=== PATIENT | male | born 1940 | race Caucasian/White ===

== ENCOUNTER 2018-10-26 10:45 | Observation (INO) ==
[2018-10-26] MEDS ORDERED: ASPIRIN 81 MG TAB.CHEW PO ONE (10:58)
--- NOTE | 2018-10-26 11:03 | ERNOTE ---
Chest Pain/Cardiac HPI Chief Complaint: Chest Pain Time Seen by Provider: 10/26/18 10:52 Source: patient Exam Limitations: no limitations Immunizations: IMMUNIZATION HX Immunizations Up to Date No History of Influenza Vaccine No Hx Pneumococcal Vaccination No Allergies/Adverse Reactions: Allergies No Known Allergies Allergy (Verified 10/26/18 10:58) Home Medications: HOME MEDICATIONS carbidopa ER 25 mg-levodopa 100 mg tablet,extended release 1 tab PO Q12H 01/19/18 [Last Taken Unknown] lisinopril 10 mg tablet 10 mg PO DAILY #90 tab 03/06/18 [Last Taken Unknown] lorazepam 0.5 mg tablet 0.25 mg PO BID PRN #30 tab 09/19/18 [Last Taken Unknown] Narrative: Patient has had intermittent chest pressure and shortness of breath over last three days related to activity. He lost his a month ago and after being more sedentary with her has been more physically active again, states that he gets symptoms with activity only, this morning with walking across the yard, resolved at this time Date (Duration): 10/24/18 Timing: intermittent Severity/Quality: moderate, pressure Location: central Chest Pain Radiation: no radiation Activities at Onset: activity Modifying Factors - Worsens: Present: exercise Nitro Today/Relief: no nitro taken today Aspirin Treatment Today: no aspirin today Associated Symptoms: Present: dizziness, shortness of breath. Absent: diaphoresis, nausea, vomiting, back pain Prior Chest Pain/Cardiac Workup: Denies: prior chest pain, heart attack Prior Treatment: Denies: recently seen, currently on antibiotics Review of Systems - Review of Systems Constitutional: Absent: recent illness ENT: Absent: nose congestion, sore throat Respiratory: Present: See HPI, shortness of breath. Absent: cough Cardiology: Present: See HPI, chest pain Gastrointestinal/Abdominal: Absent: nausea, abdominal pain Genitourinary: Present: no symptoms reported Musculoskeletal: Absent: back pain Neurological: Absent: headache Medical History (Updated 10/26/18 @ 12:58 by Lakia Ramos MD) Parkinsons disease (Chronic) Onset Date: Unknown Cellulitis (Chronic) Onset Date: Unknown HTN (hypertension) Kidney stone Onset Date: Unknown Surgical History: Surgical History (Updated 01/19/18 @ 10:41 by Camille Wallace RN) H/O removal of cyst Onset Date: Unknown History of foot surgery Onset Date: ~12/2009 right, due to infection, had dropped a railroad tie on it Family History: Family History (Updated 01/19/18 @ 10:41 by Camille Wallace RN) Father , age 60 Myocardial infarction Mother , age 91 old age No problems noted. Social History: Preferred Language Amharic Smoking Status Former smoker Alcohol Use none Drug Use none (Last Updated 01/19/18 @ 10:43 by Camille Wallace RN) No Social History Section defined Physical Exam - Physical Exam General Appearance: Present: wd/wn, alert, no apparent distress Head Exam: Present: normal inspection Respiratory: Present: no respiratory distress, normal breath sounds, no accessory muscle use, chest nontender, lungs clear Cardiovascular/Chest: Present: regular rate, rhythm, no murmur Gastrointestinal/Abdominal: Present: normal bowel sounds, nontender, nondistended, soft Extremity Exam: Present: no edema Neurological Exam: Present: alert, oriented, normal mood/affect Skin Exam: Present: normal color, warm/dry Progress - Results and Orders Patient's Lab Results:: I have reviewed the patient's lab results. - Vital Signs Patient's Vital Signs:: I have reviewed the patient's vital signs. Vital Signs: Vital Signs 10/26/18 10:54 10/26/18 10:59 Temperature 37.2 C Pulse Rate 77 64 Blood Pressure 169/103 H O2 Sat by Pulse Oximetry 93 - EKG EKG #1 EKG: NSR, other - no acute changes EKG read: Interp. by me - X-Ray X-Ray #1 X-Ray: chest - chronic, no acute changes Interpretation: Reviewed by me - Progress/Reassessment Chief Complaint: Chest Pain Progress Note-Subjective: 10/26/18 12:45 discussed test results with patient and family, patient has had no chest pain or shortness of breath since getting here 10/26/18 12:[address] Martinez 10/26/18 13:12 discussed with hannah Espinoza to admit for observation for chest pain Departure Clinical Impression: Chest pain Qualifiers: Chest pain type: unspecified Qualified Code(s): R07.9 - Chest pain, unspecified - Departure Disposition: Still a patient Condition: Stable Referrals: Jose Martinez MD [Primary Care Provider] -
[2018-10-26 11:12] LABS: Hematocrit 40.2 % (42.0-52.0); Hemoglobin 13.5 gm/dL (13.5-18.0); Mean Corpuscular Hemoglobin 30.9 pg (27-31); Mean Corpuscular Hgb Conc 33.6 g/dl (32-36); Mean Platelet Volume 11.9 fl (8-11.3); Neutrophil # 4.7 K/mm3 (1.3-6.0); Neutrophil % 66.6 % (42-75.0); Platelet Count 110 K/mm3 (150-450); Red Blood Count 4.37 M/mm3 (4.7-6.0); White Blood Count 7.1 K/mm3 (4.0-10.5)
[2018-10-26 11:22] LABS: Prothrombin Time (Patient) 10.1 Seconds (9.1-10.7)
[2018-10-26 11:25] LABS: INR 1.02 INR (0.92-1.08); Partial Thrombolplastin Time 24.9 Seconds (24-32)
[2018-10-26 11:30] LABS: Albumin * 3.5 gm/dl (3.4-5.0); Anion Gap 12.8 mmol/L (6.8-13.8); BUN/Creatinine Ratio 17.7 (9.0-21.6); Bilirubin, Total 0.6 mg/dL (0.0-1.1); Ca. Corrected For Albumin 8.9 mg/dL (8.4-10.2); Calcium * 8.8 mg/dL (7.9-10.9); Carbon Dioxide 26.4 mmol/L (24-32.6); Potassium 4.2 mmol/L (3.4-4.6); Total Protein 6.9 gm/dL (6.2-8.2); Troponin I 0.106 ng/mL (0.00-0.10)
[2018-10-26] MEDS ORDERED: NITROGLYCERIN 0.4 MG/TAB BTL SL PRN (13:25)
[2018-10-26] MEDS ORDERED: ROSUVASTATIN CALCIUM 20 MG TABLET PO STA (13:25)
--- NOTE | 2018-10-26 16:30 | HP ---
Chief Complaint - Chief Complaint Date of Service: 10/26/18 Time of Service: 16:13 Chief Complaint: chest pain History of Present Illness: Jason Butler is a 78-year-old white male with past medical history of Parkinson's disease, hypertension who was admitted on 10/26/2018 because of chest pain. Since 2 to 3 days prior to admission the patient has had 2 episodes of chest anterior tightness, 5/10, nonradiating, associated with shortness of breath and lightheadedness, lasting for about 5 to 10 minutes, relieved with rest. As per daughter the patient has been inactive ever since he was watching and taking care of his who recently . In the last couple of days, he started helping his neighbor tear down an old barn. The daughter then brought him to the emergency room where he was found to have a normal sinus rhythm on EK G with a troponin of 0.103. By the time he got to the emergency room his chest pain had resolved and he has been chest pain-free since admission. He denies any nausea, diaphoresis, history of heartburn. He was admitted for observation following our chest pain protocol. Medical History (Updated 10/26/18 @ 16:30 by Jose Martinez MD) Parkinsons disease (Chronic) Onset Date: Unknown Cellulitis (Chronic) Onset Date: Unknown HTN (hypertension) Kidney stone Onset Date: Unknown Surgical History: Surgical History (Updated 10/26/18 @ 16:30 by Jose Martinez MD) H/O removal of cyst Onset Date: Unknown History of foot surgery Onset Date: ~12/2009 right, due to infection, had dropped a railroad tie on it Family History: Family History (Updated 01/19/18 @ 10:41 by Camille Wallace RN) Father , age 60 Myocardial infarction Mother , age 91 old age No problems noted. Social History: Patient Lives/Resources Home Utilized Occupation none Preferred Language Pakistani Do you have any latter day or No cultural preference? Smoking Status Former smoker Have you smoked in the past 12 No months Do you dip or chew tobacco No Alcohol Use none Drug Use none (Last Updated 01/19/18 @ 10:43 by Camille Wallace RN) No Social History Section defined Review Of Systems (GEN) - Review of Systems Generalized/Overall Review: Absent: Weakness, Chills EENTM: Absent: Blurred Vision Respiratory: Present: Shortness of Breath. Absent: Cough, Orthopnea, Wheezing Cardiac: Present: Chest Pain. Absent: Edema, Palpitations Abdominal: Absent: Nausea, Vomiting, Hematemesis Genitourinary: Absent: Urgency, Frequency Musculoskeletal: Absent: Joint Pain, Back Pain Neurological: Absent: Headache Skin: Absent: Lesions, Rash Endocrine: Absent: Intolerance to Cold, Intolerance to Heat Misc: All systems neg except as marked Immunizations: IMMUNIZATION HX Immunizations Up to Date No History of Influenza Vaccine No Hx Pneumococcal Vaccination No Allergies/Adverse Reactions: Allergies Allergy/AdvReac Type Severity Reaction Status Date / Time No Known Allergies Allergy Verified 10/26/18 13:54 Home Medications: HOME MEDICATIONS carbidopa ER 25 mg-levodopa 100 mg tablet,extended release 1 tab PO TID 01/19/18 [Last Taken 10/26/18 16:56] lisinopril 10 mg tablet 10 mg PO DAILY #90 tab 03/06/18 [Last Taken Unknown] lorazepam 0.5 mg tablet 0.25 mg PO BID PRN #30 tab 09/19/18 [Last Taken Unknown] Exam - Exam Vital Signs: Vital Signs - Last Taken Temp 36.3 C 10/26/18 13:53 Pulse 68 10/26/18 13:55 Resp 16 10/26/18 13:53 BP 167/82 H 10/26/18 13:53 Pulse Ox 94 10/26/18 13:53 Constitutional: Present: Alert, Oriented x3, Cooperative ENT Exam: Present: hearing grossly normal Eye Exam: bilateral eye: normal inspection, PERRL, EOMI Neck: Present: supple. Absent: lymphadenopathy (R), lymphadenopathy (L) Respiratory: Present: decreased breath sounds, No rales, No wheezing Cardiovascular/Chest: Present: regular rate, rhythm, no JVD, no murmur. Absent: costrochronditis, chest tender Abdomen: Present: Normal bowel sounds, soft, nontender, nondistended Extremity: Present: no pedal edema, no calf tenderness Diagnostic Studies: Abnormal Lab Results 10/26/18 10/26/18 Range/Units 11:05 11:05 RBC 4.37 L (4.7-6.0) M/mm3 Hct 40.2 L (42.0-52.0) % Plt Count 110 L (150-450) K/mm3 MPV 11.9 H (8-11.3) fl Lymphocytes % 19.5 L (20-51) % Monocytes % 11.6 H (0.0-9) % Lymphocytes # 1.38 L (1.5-3.5) k/mm3 Random Glucose 130 H (70-110) mg/dL ALT 14 L (19-67) U/L Troponin I 0.106 H (0.00-0.10) ng/mL Laboratory Results WBC 7.1 K/mm3 (4.0-10.5) 10/26/18 11:05 RBC 4.37 M/mm3 (4.7-6.0) L 10/26/18 11:05 Hgb 13.5 gm/dL (13.5-18.0) 10/26/18 11:05 Hct 40.2 % (42.0-52.0) L 10/26/18 11:05 MCV 92.0 fl (78-100) 10/26/18 11:05 MCH 30.9 pg (27-31) 10/26/18 11:05 MCHC 33.6 g/dl (32-36) 10/26/18 11:05 RDW 12.0 % (11.5-14.0) 10/26/18 11:05 Plt Count 110 K/mm3 (150-450) L 10/26/18 11:05 MPV 11.9 fl (8-11.3) H 10/26/18 11:05 Immature Gran % (Auto) 0.40 % (0.001-0.429) 10/26/18 11:05 Immature Gran # (Auto) 0.03 K/mm3 (0.000-0.0310) 10/26/18 11:05 66.6 % (42-75.0) 10/26/18 11:05 19.5 % (20-51) L 10/26/18 11:05 11.6 % (0.0-9) H 10/26/18 11:05 1.3 % (0.0-3.0) 10/26/18 11:05 0.6 % (0.0-1.0) 10/26/18 11:05 Nucleated RBC % 0.0 k/mm3 (0-1) 10/26/18 11:05 4.7 K/mm3 (1.3-6.0) 10/26/18 11:05 1.38 k/mm3 (1.5-3.5) L 10/26/18 11:05 0.8 k/mm3 (0.0-1.0) 10/26/18 11:05 0.1 k/mm3 (0.0-0.7) 10/26/18 11:05 Absolute Basophils 0.0 k/mm3 (0.0-0.1) 10/26/18 11:05 PT 10.1 Seconds (9.1-10.7) 10/26/18 11:05 INR (Anticoag Therapy) 1.02 INR (0.92-1.08) 10/26/18 11:05 PTT (Arian) 24.9 Seconds (24-32) 10/26/18 11:05 Sodium 140 mmol/L (132-142) 10/26/18 11:05 140 mmol/L (130-142) 10/26/18 11:05 Potassium 4.2 mmol/L (3.4-4.6) 10/26/18 11:05 Chloride 105 mmol/L (97-106) 10/26/18 11:05 Carbon Dioxide 26.4 mmol/L (24-32.6) 10/26/18 11:05 12.8 mmol/L (6.8-13.8) 10/26/18 11:05 BUN 17 mg/dL (6-23) 10/26/18 11:05 0.96 mg/dL (0.4-1.4) 10/26/18 11:05 Est GFR (Non-Af Amer) 80 mL/min (60-130) 10/26/18 11:05 17.7 (9.0-21.6) 10/26/18 11:05 130 mg/dL (70-110) H 10/26/18 11:05 Calcium 8.8 mg/dL (7.9-10.9) 10/26/18 11:05 Calcium Adj for Albumin 8.9 mg/dL (8.4-10.2) 10/26/18 11:05 0.6 mg/dL (0.0-1.1) 10/26/18 11:05 AST 9 U/L (0-48) 10/26/18 11:05 ALT 14 U/L (19-67) L 10/26/18 11:05 84 U/L (50-170) 10/26/18 11:05 0.106 ng/mL (0.00-0.10) H 10/26/18 11:05 6.9 gm/dL (6.2-8.2) 10/26/18 11:05 3.5 gm/dl (3.4-5.0) 10/26/18 11:05 Assessment/Plan - Assessment/Plan (1) Chest pain Assessment: r/o ACS. will continue with serial troponin and EKG. if AMI is ruled out, will schedule him a stress test on outpatient basis. Problem: Acute Qualifiers: Chest pain type: unspecified Qualified Code(s): R07.9 - Chest pain, unspecified (2) Hypertension Assessment: continue with home medication Problem: Chronic Qualifiers: Hypertension type: essential hypertension Qualified Code(s): I10 - Essential (primary) hypertension (3) Parkinsons disease Assessment: continue with home medication. Problem: Chronic
[2018-10-26] MEDS ORDERED: LORazepam 0.5 MG TABLET PO PRN (16:31)
[2018-10-26] MEDS: CARBIDOPA/LEVODOPA CR 25/100 1 TAB TABLET.SA PO SCH (16:55)
[2018-10-26] MEDS ORDERED: LISINOPRIL 10 MG TABLET PO ONE (20:30)
[2018-10-27] MEDS: CARBIDOPA/LEVODOPA CR 25/100 1 TAB TABLET.SA PO SCH (05:35)
--- NOTE | 2018-10-27 08:29 | DS ---
(1) Chest pain Problem: Acute Qualifiers: Chest pain type: unspecified Qualified Code(s): R07.9 - Chest pain, unspecified (2) Hypertension Problem: Chronic Qualifiers: Hypertension type: essential hypertension Qualified Code(s): I10 - Essential (primary) hypertension (3) Parkinsons disease Problem: Chronic Description of Stay: Jason Butler is a 78-year-old white male with past medical history of Parkinson's disease, hypertension who was admitted on 10/26/2018 because of chest pain. Since 2 to 3 days prior to admission the patient has had 2 episodes of chest anterior tightness, 5/10, nonradiating, associated with shortness of breath and lightheadedness, lasting for about 5 to 10 minutes, relieved with res t. As per daughter the patient has been inactive ever since he was watching and taking care of his who recently . In the last couple of days, he started helping his neighbor tear down an old barn. The daughter then brought him to the emergency room. By the time he got to the emergency room his chest pain had resolved . His EKG showed a normal sinus rhythm with a troponin of 0.103. He denied any nausea, diaphoresis, history of heartburn. He was admitted for observation following our chest pain protocol. He has been chest pain-free since admission. His serial EKG and troponin trended down. CONCHITA was ruled out but will schedule him a nuclear pharmacologic stress test as an outpatient. Shayan discharge him with a low dose Torpol XL , babay ASA, NTG SL. He knows to go back tot he ED if chest pain recurs and not relieved with ASA and NTL. Procedures Performed: none Results and Findings: Lab Pending Results 10/26/18 11:05: WBC 7.1, RBC 4.37 L, Hgb 13.5, Hct 40.2 L, MCV 92.0, MCH 30.9, MCHC 33.6, RDW 12.0, Plt Count 110 L, MPV 11.9 H, Immature Gran % (Auto) 0.40, Immature Gran # (Auto) 0.03, Neutrophils % 66.6, Lymphocytes % 19.5 L, Monocytes % 11.6 H, Eosinophils % 1.3, Basophils % 0.6, Nucleated RBC % 0.0, Neutrophils # 4.7, Lymphocytes # 1.38 L, Monocytes # 0.8, Eosinophils # 0.1, Absolute Basophils 0.0 10/26/18 11:05: PT 10.1, INR (Anticoag Therapy) 1.02, PTT (Arian) 24.9 10/26/18 11:05: Sodium 140, Plasma Sodium 140, Potassium 4.2, Chloride 105, Carbon Dioxide 26.4, Anion Gap 12.8, BUN 17, Creatinine 0.96, Est GFR (Non-Af Amer) 80, BUN/Creatinine Ratio 17.7, Random Glucose 130 H, Calcium 8.8, Calcium Adj for Albumin 8.9, Total Bilirubin 0.6, AST 9, ALT 14 L, Alkaline Phosphatase 84, Troponin I 0.106 H, Total Protein 6.9, Albumin 3.5 10/26/18 17:30: Troponin I 0.137 H* 10/27/18 05:35: Troponin I 0.073 Discharge Location: Home Disposition: Home self-care Condition: Stable Discharge Activity: Activity as tolerated, Other - no strenous activity for now Discharge Diet: Low salt, Low fat/chol Referrals: Jose Martinez MD [Primary Care Provider] - Additional Patient Instructions (free text): -Please make TCM appointment unless [facility] discharge, or if following up with outside provider. Thank you! [facility]ita at [phone]. Follow upwith PCP in 1 week. Schedule an nuclear pharmacologic stress test and Echocardiogram. The earlier the better and before his appointment with me. Prescriptions (Any new or edited meds): Aspirin [Aspirin EC] 81 mg PO DAILY #30 tablet. RX: Nitroglycerin [Nitrostat] 0.4 mg SUBLINGUAL PRN PRN #14 btl PRN Reason: Chest Pain Metoprolol Succinate [Toprol Xl] 25 mg PO DAILY #30 tab Complete Home Medications List: Complete Home Medication List: carbidopa ER 25 mg-levodopa 100 mg tablet,extended release 1 tab PO TID 01/19/18 lisinopril 10 mg tablet 10 mg PO DAILY #90 tab 03/06/18 lorazepam 0.5 mg tablet 0.25 mg PO BID PRN #30 tab 09/19/18 Aspirin [Aspirin EC] 81 mg PO DAILY #30 tablet. 10/27/18 Metoprolol Succinate [Toprol Xl] 25 mg PO DAILY #30 tab 06/21/19 Nitroglycerin [Nitrostat] 0.4 mg SUBLINGUAL PRN PRN #14 btl 10/27/18 Amb Orders for Discharge: NUC Pharmacological Stress Time Frame: 1 Week, Location: Radiology US Echocardiogram Complete * Time Frame: 1 Week, Location: Radiology
[2018-10-27] MEDS ORDERED: LISINOPRIL 10 MG TABLET PO SCH (09:00)
[2018-10-27 10:19] VITALS: BP 128/72
== END 2018-10-27 10:38 | disposition home or self-care (01) ==
LOC: MS 10:45 → ER 10:45 → MS 13:33
PROVIDERS: ADMIT Internal Medicine; ATTEND Internal Medicine
DX: G20 Parkinson's disease; R07.9 Chest pain, unspecified; I10 Essential (primary) hypertension
CPT/HCPCS: 36415; 71020; 71046; 80053; 84484; 85025; 85610; 85730; 93005; 99285; G0378